=== PATIENT | female | born 1950 | race Caucasian/White ===

== ENCOUNTER → 2017-11-12 | Outpatient (CLI) | payer OTHER, MEDICAID ==
[~2017-11-12] MED LIST: ASA325 PO; BACL10TA PO; BEDSIDE COMMODE1 MI1; BENI40TA30 PO; CELE200 PO; CLEO300C2 PO; ESTE1TAB5 PO; LEVO.1 PO; METH10TA PO; METHTAB3 PO; METO25TA3 PO; NITR0.4S SL; PERC10TA27 PO; ROSU20 PO; TOPR100T15 PO; TOPR50TA PO; VALS1TAB64 PO; VALS320T6 PO; VITA20003 PO
== END ==
LOC: CPRE 10:05
PROVIDERS: ATTEND Orthopaedic Surgery Sports Medicine
DX: M17.12 Unilateral primary osteoarthritis, left knee (principal)
CPT/HCPCS: 87640; 87641

== ENCOUNTER 2017-11-18 09:09 | Inpatient (IN) | payer OTHER ==
[~2017-11-18] VITALS: Ht 167.6 cm; Wt 71.0 kg
[~2017-11-18 09:09] MED LIST changes: -ASA325 PO; -BEDSIDE COMMODE1 MI1; -BENI40TA30 PO; -CELE200 PO; -CLEO300C2 PO; -METH10TA PO; -METHTAB3 PO; -METO25TA3 PO; -PERC10TA27 PO; -TOPR100T15 PO; -VALS1TAB64 PO; -VITA20003 PO
[2017-11-18] MEDS ORDERED: ceFAZolin INJ 1,000 MG VIAL ONE (11:59)
[2017-11-18] MEDS ORDERED: ROCURONIUM INJ 50 MG/5 ML SYRINGE IV PUSH ONE (12:00)
[2017-11-18] MEDS ORDERED: ePHEDrine/NS 25 MG/5 ML SYRINGE IV ONE (12:00)
[2017-11-18] MEDS ORDERED: PROPOFOL 200 MG/20 ML AMP IV ONE (12:00)
[2017-11-18] MEDS ORDERED: CHLORHEXIDINE GLUCONATE 2 % 1 PACK (2 CLOTHS) TOPICAL PRN (12:00)
[2017-11-18] MEDS ORDERED: LIDOCAINE HCL 1% PF 5 ML SYRINGE OTHER ONE (12:00)
[2017-11-18] MEDS ORDERED: SODIUM CHLORID 0.9% 500 ML IV PRN (12:00)
[2017-11-18] MEDS ORDERED: ONDANSETRON HCL 4 MG/2 ML VIAL IV ONE (12:00)
[2017-11-18] MEDS ORDERED: LACTATED RINGER'S 1000 ML IV PRN (12:00)
[2017-11-18] MEDS ORDERED: POVIDONE IODINE 5% (ANTISEPSIS KIT) 4 APPLICATIONS EACH NARE PRN (12:00)
[2017-11-18] MEDS ORDERED: DEXAMETHASONE SOD PHOS 4 MG/ML VIAL IV ONE (12:00)
[2017-11-18] MEDS ORDERED: METOPROLOL TARTRATE 25 MG TAB PO PRN (12:00)
[2017-11-18] MEDS ORDERED: PHENYLEPH/NS 1000 MCG/10 ML SYR IV ONE (12:00)
[2017-11-18] MEDS ORDERED: LACTATED RINGER'S 1000 ML INJ 1,000 ML IV ONE (12:00)
[2017-11-18] MEDS ORDERED: PERC10TA27 PO (12:16)
[2017-11-18] MEDS ORDERED: APREPITANT 40 MG CAP ONE (12:29)
[2017-11-18] MEDS ORDERED: TRANEXAMIC ACID IV SCH (12:45)
[2017-11-18] MEDS ORDERED: ceFAZolin 2 GM PREMIX 50 ML IV SCH (12:45)
[2017-11-18] MEDS ORDERED: VANCOMYCIN 1 GM/200 ML PREMIX IV SCH (12:45)
[2017-11-18] MEDS ORDERED: SODIUM CHLORIDE 0.9% IV SCH (12:45)
[2017-11-18] MEDS ORDERED: CHLORHEXIDINE GLUCONATE 4% SOLN 120 ML BTL TOPICAL SCH (12:45)
[2017-11-18] MEDS ORDERED: BUPIVACAINE LIPOSOME PF 1.3% 20 ML VIAL ONE ×2 (12:49→13:15)
[2017-11-18] MEDS ORDERED: MIDAZOLAM HCL 5 MG/5 ML VIAL ONE (12:49)
[2017-11-18] MEDS ORDERED: TRANEXAMIC ACID 1 GM PRIOR TO PROCEDURE IV SCH ×2 (13:15)
[2017-11-18] MEDS ORDERED: MIDAZOLAM HCL 5 MG/ML VIAL (1 ML) IV PUSH ONE (13:15)
[2017-11-18] MEDS ORDERED: APREPITANT 40 MG CAP PO ONE (13:15)
[2017-11-18] MEDS ORDERED: SODIUM CHLORIDE 0.9% INJ 50 ML ONE (14:05)
[2017-11-18] MEDS ORDERED: BUPIVACAINE/EPINEPHRINE 0.5% PF 10 ML VIAL ONE (14:05)
[2017-11-18] MEDS ORDERED: TRANEXAMIC ACID INJ 1,000 MG in SODIUM CHLORIDE 0.9% INJ 100 ML IV SCH ×2 (16:00→16:15)
--- NOTE | 2017-11-18 16:10 | PD.OP ---
cc: José Antonio Hansen MD Operative Report Date of Surgery: Nov 18, 2017 Preoperative Diagnosis: (1) Osteoarthritis of left knee Postoperative Diagnosis: (1) Osteoarthritis of left knee Procedure: Left total knee arthroplasty Anesthesia: General with preoperative regional block Surgeon: José Antonio Hansen Scrap Metal Collector(s): Nita Frias PA-C ([place]) The surgical procedure was assisted by my physician's elementary assistant teacher. Her presence was necessary throughout the case for manipulation and positioning of the surgical extremity. My PA was assisting me throughout the duration of this procedure. The skill set of the physician elementary assistant teacher was medically necessary to complete this procedure. During the surgical case the ecologist technician was working at the back table and the physician elementary assistant teacher was directly assisting me. Operation and Findings: This 66-year-old female has a long history of progressive left knee pain and deformity. The patient initially relates it to an injury many years ago. She has had a previous right total knee arthroplasty.The patient has had progressive pain and a valgus deformity which limits her daily activity. She has been unresponsive to nonoperative measures. X-rays reveals advanced degenerative joint disease worse in the lateral compartment with bony erosion of the tibial plateau and a significant valgus alignment. Given the alternatives to treatment she presents for total knee arthroplasty. Implants used: Depuy size 4N cemented posterior stabilized femoral component, size 4 cemented revision tibial stem rotating platform, 35 cemented polyethylene patellar dome, with a 10 mm tibial insert rotating platform Procedure and findings: The patient was taken to the operative suite and after undergoing an adequate level of general anesthesia preceded by a regional block was kept supine on the operating table. Preoperative antibiotics consisted of Ancef 2 g IV and vancomycin 1 g IV. The left lower extremity was then prepped and draped in usual sterile fashion with alcohol and Hibiclens. A standard anterior approach the knee was made with incision centered over the medial one third of the patella. This was carried down through skin and subcutaneous tense tissue with a knife. The quadricep tendon was identified proximally and the patellar tendon distally. A medial parapatellar arthrotomy was made. A small joint effusion was evacuated. Upon entering the knee joint is noted to be marked degenerative changes which were tricompartmental in nature. It was significantly worse in the lateral compartment with bony erosion of the tibial plateau and lateral femoral condyle. The remnant of the ACL was excised. The menisci were excised. Osteophytes were removed. Attention was first focused on the distal femur where an intramedullary guide was used to make a 5 valgus cut. A sizing jig was then applied and a 4 selected. With the cutting block in place the anterior, posterior and chamfer cuts were made.The central box cut was then made. Attention was then focused on the proximal tibia. An extramedullary guide was used. A 0 mm of bone wareferencing off the lateral aspect. The varus/valgus alignment was also checked with an extramedullary guide. The PCL was released. The tibia was then sized to a 4. A freehand technique was utilized on the patella. This was sized to a 35. Drill holes were made and trial components placed. The 10 mm tibial bearing gave the best range of motion and stability. There was good patellar tracking. These components were therefore selected. The femoral drill holes were made. The tibial cement punches were made. A drill was used to open the proximal tibia to accept a tibial stemmed component. The wound was thoroughly irrigated with pulse lavage. Bone cement was prepared on the back table. After thorough drying it was applied to the proximal tibia. The tibial component was then impacted in the place. All excess bone cement was removed. Bone cement was then applied to the distal femur. The femoral component was then impacted in the place. A trial tibial bearing was then placed. The knee was then placed in full extension for further compression. After thorough drying bone cement was applied to the undersurface of the patella. The patellar button was seated and held with a compression clamp. All excess bone cement was removed. Once the cement had matured good range of motion, patellar tracking and stability was again noted. The 10 mm tibial bearing was then seated. The wound was again thoroughly irrigated with pulse lavage. AutoVac drains were left in place. The incision was closed in layers utilizing #1 Vicryl suture on the extensor mechanism, 0 Vicryl suture on the deep tissue, 2-0 Vicryl suture on the subcutaneous tissue and tere on the skin. Sterile dressings were applied the patient was awakened transferred to the hospital bed and taken to the recovery room in stable condition. Estimated blood loss: 75 cc Complications: None José Antonio Hansen MD Nov 18, 2017 16:10
[2017-11-18] MEDS ORDERED: DO NOT ADM ANY ANTICOAGULANT DRUGS PRN (16:12)
[2017-11-18] MEDS ORDERED: PROMETHAZINE HCL 25 MG TAB PO PRN (16:15)
[2017-11-18] MEDS ORDERED: ALUMINUM/MAGNESIUM/SIMETH 30 ML CUP PO PRN (16:15)
[2017-11-18] MEDS ORDERED: BISACODYL 10 MG SUPP RECTAL PRN (16:15)
[2017-11-18] MEDS ORDERED: ACETAMINOPHEN 325 MG TAB PO PRN (16:15)
[2017-11-18] MEDS ORDERED: TEMAZEPAM 15 MG CAP PO PRN (16:15)
[2017-11-18] MEDS ORDERED: SODIUM CHLORIDE 0.9% FLUSH 10 ML FLUSH IV FLUSH PRN (16:15)
[2017-11-18] MEDS ORDERED: LACTULOSE SYRUP 20 GM/30 ML CUP PO PRN (16:15)
[2017-11-18] MEDS ORDERED: Post-op Orders (for Pharmacy) XX ONE (16:15)
[2017-11-18] MEDS ORDERED: MORPHINE SULFATE 8 MG/ML INJ IV PUSH PRN (16:15)
[2017-11-18] MEDS ORDERED: oxyCODONE/ACETAMINOPHEN 5 MG/325 MG TAB PO PRN (16:15)
[2017-11-18] MEDS: LACTATED RINGER'S 1000 ML INJ 1,000 ML IV SCH (16:30)
[2017-11-18] MEDS ORDERED: *HYDROmorphone PF 0.5 MG/0.5 ML PERIprocedure ONLY ONE ×3 (16:40→17:18)
--- NOTE | 2017-11-18 17:10 | RADRPT ---
EXAM DATE: 11/18/2017 4:52 PM EDT AGE/SEX: 66 years / Female INDICATIONS: Post operative left knee. CLINICAL DATA: This is the patient's initial encounter. Patient reports that signs and symptoms have been present for 1 day and indicates a pain score of Nonresponsive. MEDICAL/SURGICAL HISTORY: Non-responsive. Non-responsive. COMPARISON: No prior [place] exams available for comparison. FINDINGS: Left total knee arthroplasty. All 3 components are appropriately positioned. No fracture. YANELY type luis in is seen in the suprapatellar region. CONCLUSION: Appropriate postoperative appearance of the left knee status post total arthroplasty. Electronically signed by: Elpidio Moore MD 11/18/2017 5:09 PM EDT
--- NOTE | 2017-11-18 18:35 | PD.CONS ---
HPI Service [facility] Consult Requested By Orthopedic surgeon Reason for Consult Medical management Primary Care Physician No Primary Care Physician Diagnoses: History of Present Illness 66-year-old female with history of hypertension, hyperlipidemia, and severe left knee OA who despite medical management including PT, corticosteroid injections and NSAIDs, continue to have severe left knee pain affecting her daily living of activity including ambulation, underwent today left total knee arthroplasty.[facility] was consulted for medical management. Patient has no other issues and vital stable Review of Systems Except as stated in HPI: all other systems reviewed are Neg Past Family Social History Allergies: Coded Allergies: No Known Allergies (Unverified Allergy, Unknown, 11/18/17) morphine (Verified Adverse Reaction, Unknown, nausea and vomiting, 11/18/17) Past Medical History Left knee OA Hypertension Hyperlipidemia Hypothyroidism Past Surgical History s/p Left total knee arthroplasty November 18, 2017 Reported Medications See EMR Family History Noncontributory Social History Patient denies tobacco, illicit drug intake Physical Exam Vital Signs Vital Signs Date Time Temp Pulse Resp B/P (MAP) Pulse Ox O2 Delivery O2 Flow Rate FiO2 11/18/17 17:15 97.9 75 18 125/59 (81) 100 Nasal Cannula 2 11/18/17 17:00 78 18 119/63 (81) 100 Nasal Cannula 2 11/18/17 16:45 77 16 113/54 (73) 100 Nasal Cannula 3 11/18/17 16:30 79 16 103/55 (71) 100 Nasal Cannula 3 11/18/17 16:15 67 15 81/41 (54) 96 Nasal Cannula 3 11/18/17 16:09 97.9 65 16 85/46 (59) 96 Nasal Cannula 3 11/18/17 12:30 100 Nasal Cannula 2 11/18/17 11:45 98.0 77 20 128/66 (86) 99 Physical Exam GENERAL: This is a well-nourished, well-developed patient, in no apparent distress. SKIN: No rashes, ecchymoses or lesions. Cool and dry. HEAD: Atraumatic. Normocephalic. No temporal or scalp tenderness. EYES: Pupils equal round and reactive. Extraocular motions intact. No scleral icterus. No injection or drainage. ENT: Nose without bleeding, purulent drainage or septal hematoma. Throat without erythema, tonsillar hypertrophy or exudate. Uvula midline. Airway patent. NECK: Trachea midline. No JVD or lymphadenopathy. Supple, nontender, no meningeal signs. CARDIOVASCULAR: Regular rate and rhythm without murmurs, gallops, or rubs. RESPIRATORY: Clear to auscultation. Breath sounds equal bilaterally. No wheezes , rales, or rhonchi. GASTROINTESTINAL: Abdomen soft, non-tender, nondistended. No hepato-splenomegaly , or palpable masses. No guarding. MUSCULOSKELETAL: Extremities without clubbing, cyanosis, or edema. No joint tenderness, effusion, or edema noted. No calf tenderness. Negative Homans sign bilaterally.s/p left knee repair; drain in place NEUROLOGICAL: Awake and alert. Cranial nerves II through XII intact. Motor and sensory grossly within normal limits. Five out of 5 muscle strength in all muscle groups. Normal speech. Imaging Last Impressions Knee X-Ray 11/18/17 0000 Signed Impressions: CONCLUSION: Appropriate postoperative appearance of the left knee status post total arthrop lasty. Assessment and Plan Assessment and Plan 66-year-old female with Status post Left total knee arthroplasty November 18, 2017 Management per orthopedic surgery Continue with pain management accordingly Aspirin for DVT prophylaxis PT consult to treat and eval History of hypertension, hypothyroidism, hyperlipidemia Resume outpatient medications DVT prophylaxis: Aspirin Code Status Full code Discussed Condition With Patient Jeff Mcfarlane MD Nov 18, 2017 18:35
[2017-11-18] MEDS: ceFAZolin 2 GM PREMIX 50 ML IV SCH (19:58)
[2017-11-18] MEDS: METOPROLOL SUCCINATE 50 MG EXTENDED RELEASE TAB PO SCH (19:59)
[2017-11-18] MEDS: oxyCODONE/ACETAMINOPHEN 5 MG/325 MG TAB PO PRN (19:59)
[2017-11-18] MEDS: SODIUM CHLORIDE 0.9% FLUSH 10 ML FLUSH IV FLUSH SCH (19:59)
[2017-11-18] MEDS: DOCUSATE SODIUM 50 MG/SENNA 8.6 MG TAB PO SCH (19:59)
[2017-11-18 20:05] VITALS: BP 141/67; PULSE 75; RESP 18; TEMP 97.7; O2SAT 99
[2017-11-18] MEDS ORDERED: SENNOSIDES 8.6 MG TAB PO PRN (21:00)
[2017-11-18] MEDS ORDERED: MAGNESIUM HYDROXIDE SUSP 30 ML CUP PO PRN (21:00)
[2017-11-18] MEDS: HYDROmorphone HCL PF 2 MG/ML VIAL IV PRN (21:23)
[2017-11-19] VITALS: BP 109/56; PULSE 81; RESP 16; TEMP 98.2; O2SAT 100
[2017-11-19] MEDS: ceFAZolin 2 GM PREMIX 50 ML IV SCH ×2 (01:25→08:32)
[2017-11-19] MEDS: oxyCODONE/ACETAMINOPHEN 5 MG/325 MG TAB PO PRN ×5 (01:26→18:42)
[2017-11-19] MEDS: HYDROmorphone HCL PF 2 MG/ML VIAL IV PRN ×4 (02:29→20:09)
[2017-11-19 04:00] VITALS: BP 117/55; PULSE 62; RESP 16; TEMP 98.2; O2SAT 97
[2017-11-19 04:03] LABS: HEMATOCRIT 34.9 % (35.0-46.0); HEMOGLOBIN 11.4 GM/DL (11.6-15.3)
[2017-11-19] MEDS: LACTATED RINGER'S 1000 ML INJ 1,000 ML IV SCH ×2 (04:40→17:10)
[2017-11-19] MEDS: LEVOTHYROXINE SODIUM 100 MCG TAB PO SCH (05:03)
[2017-11-19 08:00] VITALS: BP 125/59; PULSE 64; RESP 16; TEMP 98.3; O2SAT 99
--- NOTE | 2017-11-19 08:06 | PD.ORT.PN ---
Subjective Post Op Day #: 1 Subjective Remarks POD #1 Left TKA Pt is awake and alert. She states her pain is well controlled this morning but she did have a difficult night. Admits interest in using CPM. States she has more back pain from previous surgeries and is requesting a muscle relaxer. Lives alone and unsure of C vs rehab upon discharge. Objective Vitals Vital Signs Date Time Temp Pulse Resp B/P (MAP) Pulse Ox O2 Delivery O2 Flow Rate FiO2 11/19/17 04:00 98.2 62 16 117/55 (75) 97 11/19/17 00:00 98.2 81 16 109/56 (73) 100 11/18/17 20:05 97.7 75 18 141/67 (91) 99 11/18/17 17:15 97.9 75 18 125/59 (81) 100 Nasal Cannula 2 11/18/17 17:00 78 18 119/63 (81) 100 Nasal Cannula 2 11/18/17 16:45 77 16 113/54 (73) 100 Nasal Cannula 3 11/18/17 16:30 79 16 103/55 (71) 100 Nasal Cannula 3 11/18/17 16:15 67 15 81/41 (54) 96 Nasal Cannula 3 11/18/17 16:09 97.9 65 16 85/46 (59) 96 Nasal Cannula 3 11/18/17 12:30 100 Nasal Cannula 2 11/18/17 11:45 98.0 77 20 128/66 (86) 99 I/O 11/18/17 11/18/17 11/18/17 11/19/17 11/19/17 11/19/17 07:00 15:00 23:00 07:00 15:00 23:00 Intake Total 1500 ml Output Total 75 ml 60 ml Balance 1425 ml -60 ml Other 1500 ml Output Drainage Total 60 ml Estimated Blood Loss 75 ml Result Diagram: 11/19/17 0320 Imaging Last 48 hours Impressions Knee X-Ray 11/18/17 0000 Signed Impressions: CONCLUSION: Appropriate postoperative appearance of the left knee status post total arthrop lasty. Procedures 11/18/2017 Left Total Knee Arthroplasty Objective Remarks LLE: Dressing dry and intact. Drain in place. Tender to palpation with mild swelling around incision site. Appropriate range of motion expected post operatively. Freely able to move distal digits. No calf pain. Negative Chiqui's sign. Good cap refill. 2+ pedal pulses. Neurovascular intact. Assessment & Plan Ortho Post Op Day #: 1 Problem List: (1) Osteoarthritis of left knee ICD Codes: M17.12 - Unilateral primary osteoarthritis, left knee Assessment and Plan POD #1 Left Total Knee Arthroplasty Ortho Status stable, progress rehab, W/B as tolerated. CPM ordered per pt request. She states she has one at home upon d/c. Lovenox while in hospital for DVT prophylaxis. ASA upon d/c. No change dressing. Ok to d/c drain when <30cc a shift. Ok to remove cinda wrap/soft roll at that time. CM to arrange HHC vs rehab. Muscle relaxer per medical if appropriate. Appreciate involvement in pts care. Discharge planning. Nita Frias Nov 19, 2017 8:05 am
[2017-11-19] MEDS: ASPIRIN 325 MG TAB PO SCH (08:32)
[2017-11-19] MEDS: DOCUSATE SODIUM 50 MG/SENNA 8.6 MG TAB PO SCH ×2 (08:32→20:07)
[2017-11-19] MEDS: HYDROCHLOROTHIAZIDE 25 MG TAB PO SCH (08:33)
[2017-11-19] MEDS: SODIUM CHLORIDE 0.9% FLUSH 10 ML FLUSH IV FLUSH SCH ×2 (08:33→20:08)
[2017-11-19] MEDS: VALSARTAN 160 MG TAB PO SCH (08:33)
[2017-11-19] MEDS: ATORVASTATIN 40 MG TAB PO SCH (08:33)
[2017-11-19] MEDS: METOPROLOL SUCCINATE 50 MG EXTENDED RELEASE TAB PO SCH ×2 (08:33→20:07)
[2017-11-19 12:00] VITALS: BP 113/56; PULSE 67; RESP 16; TEMP 98.7; O2SAT 98
[2017-11-19] MEDS: ENOXAPARIN SODIUM 40 MG/0.4 ML SYRINGE SQ SCH (14:27)
--- NOTE | 2017-11-19 14:43 | HHI.PR ---
Subjective Remarks Follow-up for left TKA, HTN, HLD. The patient reports feeling better this afternoon. She states she had some right-sided back spasms earlier today, but resolved on its own. She believes the CPM is helping her left knee stiffness. Her last BM was yesterday 11/18 prior to surgery. She is tolerating oral intake. Vital signs reviewed and stable. She has no other medical complaints at this time. Objective Vitals Vital Signs Date Time Temp Pulse Resp B/P (MAP) Pulse Ox O2 Delivery O2 Flow Rate FiO2 11/19/17 12:00 98.7 67 16 113/56 (75) 98 11/19/17 10:59 18 11/19/17 09:02 18 11/19/17 08:00 98.3 64 16 125/59 (81) 99 11/19/17 04:00 98.2 62 16 117/55 (75) 97 11/19/17 00:00 98.2 81 16 109/56 (73) 100 11/18/17 20:05 97.7 75 18 141/67 (91) 99 11/18/17 17:15 97.9 75 18 125/59 (81) 100 Nasal Cannula 2 11/18/17 17:00 78 18 119/63 (81) 100 Nasal Cannula 2 11/18/17 16:45 77 16 113/54 (73) 100 Nasal Cannula 3 11/18/17 16:30 79 16 103/55 (71) 100 Nasal Cannula 3 11/18/17 16:15 67 15 81/41 (54) 96 Nasal Cannula 3 11/18/17 16:09 97.9 65 16 85/46 (59) 96 Nasal Cannula 3 I/O 11/18/17 11/18/17 11/18/17 11/19/17 11/19/17 11/19/17 07:00 15:00 23:00 07:00 15:00 23:00 Intake Total 1500 ml Output Total 75 ml 60 ml Balance 1425 ml -60 ml Other 1500 ml Output Drainage Total 60 ml Estimated Blood Loss 75 ml Result Diagram: 11/19/17 0320 Imaging Last Impressions Knee X-Ray 11/18/17 0000 Signed Impressions: CONCLUSION: Appropriate postoperative appearance of the left knee status post total arthrop lasty. Objective Remarks GENERAL: Well-nourished, well-developed pleasant female patient in NAD. SKIN: Warm and dry. No rash. HEENT: Normocephalic. Atraumatic. Pupils equal and round. Mucous membranes pink and moist. CARDIOVASCULAR: Regular rate and rhythm. No murmur appreciated. RESPIRATORY: No accessory muscle use. Clear to auscultation. Breath sounds equal bilaterally. GASTROINTESTINAL: Abdomen soft, non-tender, nondistended. Normoactive bowel sounds x4. MUSCULOSKELETAL: No obvious deformities. LLE in surgical dressing and Michael wrap CDI, currently in CPM. Distal left toes sensation intact with brisk capillary refill. NEUROLOGICAL: Awake and alert. No obvious cranial nerve deficits. Motor grossly within normal limits. Normal speech. PSYCHIATRIC: Appropriate mood and affect; insight and judgment normal. Procedures 11/18/17 -left total knee arthroplasty by Dr. Hansen Medications and IVs Current Medications Medications (Trade) Dose Ordered Sig/Vincenzo Route Start Time Stop Time Status Last Admin Vancomycin/Sodium Chloride 200 ml @ 200 mls/hr REDUCING SYSTEM OPERATOR IV 11/18/17 12:45 11/21/17 12:44 11/18/17 13:12 (Hibiclens 4% Top Soln) 1 applic ONCE TOPICAL 11/18/17 12:45 11/21/17 12:44 11/18/17 12:30 Cefazolin Sodium/ Dextrose 50 ml @ 100 mls/hr REDUCING SYSTEM OPERATOR IV 11/18/17 12:45 11/21/17 12:44 11/18/17 13:40 Lactated Ringer's 1,000 ml @ 80 mls/hr [id number] IV 11/18/17 16:10 11/18/17 16:30 (NS Flush) 2 ml UNSCH PRN IV FLUSH 11/18/17 16:15 (NS Flush) 2 ml BID IV FLUSH 11/18/17 21:00 11/19/17 08:33 (Lovenox Inj) 40 mg Q24H SQ 11/19/17 15:00 11/19/17 14:27 (Percocet 5-325 Mg) 1 tab Q4H PRN PO 11/18/17 16:15 (Percocet 5-325 Mg) 2 tab Q4H PRN PO 11/18/17 16:15 11/19/17 14:27 (Tylenol) 650 mg Q6H PRN PO 11/18/17 16:15 (Mag-Al Plus Susp Liq) 30 ml Q6H PRN PO 11/18/17 16:15 (Restoril) 15 mg HS PRN PO 11/18/17 16:15 (Tatinaa-Colace) 1 tab BID PO 11/18/17 21:00 11/19/17 08:32 (Milk Of Magnesia Liq) 30 ml Q12HR PRN PO 11/18/17 21:00 (Senokot) 17.2 mg Q12HR PRN PO 11/18/17 21:00 (Dulcolax Supp) 10 mg DAILY PRN RECTAL 11/18/17 16:15 (Lactulose Liq) 30 ml DAILY PRN PO 11/18/17 16:15 (Phenergan) 25 mg Q6H PRN PO 11/18/17 16:15 (Aspirin) 325 mg DAILY PO 11/19/17 09:00 11/19/17 08:32 ([facility] Nursing Information) ALL NURSING DEPARTME... UNSCH PRN .XX 11/18/17 16:12 11/19/17 16:11 (Dilaudid Pf Inj) 1 mg Q3H PRN IV 11/18/17 17:15 11/19/17 12:28 (Synthroid) 100 mcg DAILY@0600 PO 11/19/17 06:00 11/19/17 05:03 (Toprol Xl) 50 mg BID PO 11/18/17 21:00 11/19/17 08:33 (Lipitor) 40 mg DAILY PO 11/19/17 09:00 11/19/17 08:33 (Hydrodiuril) 25 mg DAILY PO 11/19/17 09:00 11/19/17 08:33 (Diovan) 320 mg DAILY PO 11/19/17 09:00 11/19/17 08:33 A/P Assessment and Plan 66-year-old female with history of hypertension, hyperlipidemia, hypothyroidism , osteoarthritis, admitted to the hospital for left total knee arthroplasty 11/[address] Hansen. Hospitalist consulted for medical management. Osteoarthritis status post left TKA: Surgery done 11/18/[address] Hansen -Continue management per orthopedic surgery -DVT prophylaxis with Lovenox while in the hospital, plan for aspirin upon discharge -PT consulted, patient undecided on home health care versus rehab -Continue pain control with Percocet prn and IV Dilaudid prn Hypertension/hyperlipidemia: Chronic, BP well-controlled -Continue patient's valsartan, metoprolol, HCTZ, statin -Monitor BP, adjust antihypertensives as needed Hypothyroidism: Chronic -Continue patient's Synthroid DVT prophylaxis: Portia Harrington PA-C Nov 19, 2017 2:43 pm
[2017-11-19 16:00] VITALS: BP 128/58; PULSE 76; RESP 16; TEMP 98.3; O2SAT 99
[2017-11-19 20:00] VITALS: BP 138/60; PULSE 66; RESP 16; TEMP 98.4; O2SAT 99
[2017-11-19] MEDS: BACLOFEN 10 MG TAB PO SCH (20:08)
[2017-11-19] MEDS ORDERED: KETOROLAC TROMETHAMINE 30 MG/ML (IVP) VIAL IV PUSH ONE (21:45)
[2017-11-20 00:01] VITALS: BP 104/59; PULSE 60; RESP 16; TEMP 98.1; O2SAT 97
[2017-11-20] MEDS: oxyCODONE/ACETAMINOPHEN 5 MG/325 MG TAB PO PRN ×5 (04:26→21:52)
[2017-11-20] MEDS: LACTATED RINGER'S 1000 ML INJ 1,000 ML IV SCH ×2 (04:47→18:10)
[2017-11-20] MEDS: LEVOTHYROXINE SODIUM 100 MCG TAB PO SCH (06:28)
[2017-11-20 08:00] VITALS: BP 129/72; PULSE 70; RESP 16; TEMP 98.5; O2SAT 98
[2017-11-20 08:38] LABS: CALCIUM 8.6 MG/DL (8.5-10.1); CREATININE 1.19 MG/DL (0.50-1.00)
[2017-11-20 08:47] LABS: AUTOMATED NEUTROPHIL # 8.4 TH/MM3 (1.8-7.7); BASOPHIL % 0.4 % (0.0-2.0); EOSINOPHIL # 0.1 TH/MM3 (0-0.4); EOSINOPHIL % 0.4 % (0.0-4.0); HEMATOCRIT 31.2 % (35.0-46.0); HEMOGLOBIN 10.5 GM/DL (11.6-15.3); LYMPH % 18.5 % (9.0-44.0); LYMPHOCYTE # 2.2 TH/MM3 (1.0-4.8); MEAN CELL VOLUME 92.7 FL (80.0-100.0); MEAN CORPUSCULAR HEMOGLOBIN 31.1 PG (27.0-34.0); MEAN CORPUSCULAR HGB CONC 33.6 % (32.0-36.0); MEAN PLATELET VOLUME 8.6 FL (7.0-11.0); MONO % 10.2 % (0.0-8.0); MONOCYTE # 1.2 TH/MM3 (0-0.9); NEUT % 70.5 % (16.0-70.0); PLATELET COUNT 292 TH/MM3 (150-450); RED BLOOD COUNT 3.36 MIL/MM3 (4.00-5.30); RED CELL DISTRIBUTION WIDTH 13.9 % (11.6-17.2); WHITE BLOOD COUNT 11.8 TH/MM3 (4.0-11.0)
[2017-11-20] MEDS: HYDROCHLOROTHIAZIDE 25 MG TAB PO SCH (09:18)
[2017-11-20] MEDS: ASPIRIN 325 MG TAB PO SCH (09:18)
[2017-11-20] MEDS: VALSARTAN 160 MG TAB PO SCH (09:18)
[2017-11-20] MEDS: ATORVASTATIN 40 MG TAB PO SCH (09:18)
[2017-11-20] MEDS: DOCUSATE SODIUM 50 MG/SENNA 8.6 MG TAB PO SCH ×2 (09:19→21:49)
[2017-11-20] MEDS: METOPROLOL SUCCINATE 50 MG EXTENDED RELEASE TAB PO SCH ×2 (09:19→21:49)
[2017-11-20] MEDS: SODIUM CHLORIDE 0.9% FLUSH 10 ML FLUSH IV FLUSH SCH ×2 (09:32→21:49)
--- NOTE | 2017-11-20 10:25 | HHI.PR ---
Subjective Remarks Pt tells me she feels ok, but has some back pain/spasm on the left. states she had a fusion a long time ago and since sx she has left sided back discomfort but feels it in the muscle, states it is just "uncomfortable". denies any CP/SOB /N/V Objective Vitals Vital Signs Date Time Temp Pulse Resp B/P (MAP) Pulse Ox O2 Delivery O2 Flow Rate FiO2 11/20/17 00:01 98.1 60 16 104/59 (74) 97 11/19/17 20:00 98.4 66 16 138/60 (86) 99 11/19/17 16:00 98.3 76 16 128/58 (81) 99 11/19/17 15:27 18 11/19/17 12:58 18 11/19/17 12:00 98.7 67 16 113/56 (75) 98 I/O 11/19/17 11/19/17 11/19/17 11/20/17 11/20/17 11/20/17 07:00 15:00 23:00 07:00 15:00 23:00 Intake Total 600 ml 500 ml Output Total 60 ml 50 ml Balance -60 ml 600 ml 450 ml Intake Oral 600 ml 500 ml Output Drainage Total 60 ml 50 ml # Voids 2 3 Result Diagram: 11/20/17 0642 11/20/17 0642 Imaging Last Impressions Knee X-Ray 11/18/17 0000 Signed Impressions: CONCLUSION: Appropriate postoperative appearance of the left knee status post total arthrop lasty. Objective Remarks GENERAL: sitting up on recliner, appears comfortable CARDIOVASCULAR: Regular rate and rhythm. No murmur appreciated. RESPIRATORY: Clear to auscultation. Breath sounds equal bilaterally. GASTROINTESTINAL: Abdomen soft, non-tender, nondistended. MUSCULOSKELETAL: No obvious deformities. LLE in surgical dressing and Michael wrap , able to wiggle her toes, sensation intact. I did palpate her back and she does have some tenderness in the lower paraspinal muscle and I'm able to reproduce her pain. NEUROLOGICAL: Awake and alert. No obvious cranial nerve deficits. Motor grossly within normal limits. Normal speech. Procedures 11/18/17 -left total knee arthroplasty by Dr. Hansen A/P Assessment and Plan 66-year-old female with history of hypertension, hyperlipidemia, hypothyroidism , osteoarthritis, admitted to the hospital for left total knee arthroplasty 11/[address] Hansen. Hospitalist consulted for medical management. Osteoarthritis status post left TKA: Surgery done 11/18/[address] Hansen -Continue management per orthopedic surgery -DVT prophylaxis with Lovenox while in the hospital, plan for aspirin upon discharge -PT following -Continue pain control per ortho Hypertension/hyperlipidemia: Chronic, BP well-controlled -Continue patient's valsartan, metoprolol, HCTZ, statin -Monitor BP, adjust antihypertensives as needed Hypothyroidism: Chronic -Continue patient's Synthroid back muscle discomfort/spasm: will give one time dose of flexeril now. Apply heating pad to back as needed DVT prophylaxis: Lovenox Discharge Planning per primary team Janny Molina MD Nov 20, 2017 10:25
[2017-11-20] MEDS ORDERED: CYCLOBENZAPRINE HCL 10 MG TAB PO ONE (10:30)
[2017-11-20 12:00] VITALS: BP 148/70; PULSE 64; RESP 18; TEMP 98.2; O2SAT 100
--- NOTE | 2017-11-20 14:09 | PD.ORT.PN ---
Subjective Subjective Remarks POD #2 Left TKA Pt is awake and alert. She states her pain is well controlled and she is working with therapy. She expresses interest in being discharged to rehab as she lives alone. No other complaints. Objective Vitals Vital Signs Date Time Temp Pulse Resp B/P (MAP) Pulse Ox O2 Delivery O2 Flow Rate FiO2 11/20/17 12:00 98.2 64 18 148/70 (96) 100 11/20/17 10:17 16 11/20/17 00:01 98.1 60 16 104/59 (74) 97 11/19/17 20:00 98.4 66 16 138/60 (86) 99 11/19/17 16:00 98.3 76 16 128/58 (81) 99 I/O 11/19/17 11/19/17 11/19/17 11/20/17 11/20/17 11/20/17 07:00 15:00 23:00 07:00 15:00 23:00 Intake Total 600 ml 500 ml Output Total 60 ml 50 ml Balance -60 ml 600 ml 450 ml Intake Oral 600 ml 500 ml Output Drainage Total 60 ml 50 ml # Voids 2 3 Result Diagram: 11/20/17 0642 11/20/17 0642 Imaging Last 48 hours Impressions Knee X-Ray 11/18/17 0000 Signed Impressions: CONCLUSION: Appropriate postoperative appearance of the left knee status post total arthrop lasty. Procedures 11/18/2017 Left Total Knee Arthroplasty Objective Remarks LLE: Dressing dry and intact. Mild area of saturation on the lateral side. Tender to palpation with mild swelling around incision site. Appropriate range of motion expected post operatively. Freely able to move distal digits. No calf pain. Negative Chiqui's sign. Good cap refill. 2+ pedal pulses. Neurovascular intact. Assessment & Plan Problem List: (1) Osteoarthritis of left knee ICD Codes: M17.12 - Unilateral primary osteoarthritis, left knee Assessment and Plan POD #2 Left Total Knee Arthroplasty Ortho Status stable, progress rehab, W/B as tolerated. CPM ordered per pt request. She states she has one at home upon d/c. Lovenox while in hospital for DVT prophylaxis. ASA upon d/c. No change dressing. Discharge planning, anticipate d/c tomorrow to rehab. Nita Frias Nov 20, 2017 14:09
[2017-11-20] MEDS: ENOXAPARIN SODIUM 40 MG/0.4 ML SYRINGE SQ SCH (14:27)
[2017-11-20 16:00] VITALS: BP 128/61; PULSE 63; RESP 18; TEMP 98.5; O2SAT 100
[2017-11-20 20:00] VITALS: BP 143/66; PULSE 67; RESP 17; TEMP 98.1; O2SAT 97
[2017-11-20] MEDS ORDERED: PADIMATE (CHAPSTICK) 4.5 GM TUBE TOPICAL PRN (20:15)
[2017-11-20] MEDS: BACLOFEN 10 MG TAB PO SCH (21:49)
[2017-11-21 00:01] VITALS: BP 143/70; PULSE 69; RESP 18; TEMP 98.6; O2SAT 98
[2017-11-21] MEDS: oxyCODONE/ACETAMINOPHEN 5 MG/325 MG TAB PO PRN ×3 (02:30→10:35)
[2017-11-21] MEDS: LACTATED RINGER'S 1000 ML INJ 1,000 ML IV SCH (06:02)
[2017-11-21] MEDS: LEVOTHYROXINE SODIUM 100 MCG TAB PO SCH (06:05)
--- NOTE | 2017-11-21 07:19 | PD.ORT.PN ---
Subjective Post Op Day #: 3 Subjective Remarks POD #3 Left TKA Pt is awake and alert. She states her pain is well controlled. She feels ready for d/c today to rehab. No other complaints. Objective Vitals Vital Signs Date Time Temp Pulse Resp B/P (MAP) Pulse Ox O2 Delivery O2 Flow Rate FiO2 11/21/17 00:01 98.6 69 18 143/70 (94) 98 11/20/17 20:00 98.1 67 17 143/66 (91) 97 11/20/17 16:00 98.5 63 18 128/61 (83) 100 11/20/17 15:26 18 11/20/17 12:00 98.2 64 18 148/70 (96) 100 11/20/17 08:00 98.5 70 16 129/72 (91) 98 I/O 18 11/20/17 11/20/17 11/21/1718 11/21/17 07:00 15:00 23:00 07:00 15:00 23:00 Intake Total 500 ml 600 ml Output Total 50 ml Balance 450 ml 600 ml Intake Oral 500 ml 600 ml Output Drainage Total 50 ml # Voids 3 3 3 # Bowel Movements 1 1 Result Diagram: 11/20/17 0642 11/20/17 0642 Imaging Last 48 hours Impressions Knee X-Ray 11/18/17 0000 Signed Impressions: CONCLUSION: Appropriate postoperative appearance of the left knee status post total arthrop lasty. Procedures 11/18/2017 Left Total Knee Arthroplasty Objective Remarks LLE: Dressing dry and intact. Mild area of saturation on the lateral side. Tender to palpation with mild swelling around incision site. Appropriate range of motion expected post operatively. Freely able to move distal digits. No calf pain. Negative Chiqui's sign. Good cap refill. 2+ pedal pulses. Neurovascular intact. Assessment & Plan Problem List: (1) Osteoarthritis of left knee ICD Codes: M17.12 - Unilateral primary osteoarthritis, left knee Assessment and Plan POD #3 Left Total Knee Arthroplasty Ortho Status stable, progress rehab, W/B as tolerated. CPM ordered per pt request. She states she has one at home upon d/c. Lovenox while in hospital for DVT prophylaxis. ASA upon d/c. No change dressing. Clear for d/c from an orthopedic standpoint. F/U in 3 weeks Clapper,Nita Juanis PA Nov 21, 2017 07:19
[2017-11-21] MEDS ORDERED: BEDSIDE COMMODE1 MI1 (07:23)
[2017-11-21] MEDS ORDERED: PERC10TA27 PO ×2 (07:27→07:34)
[2017-11-21] MEDS ORDERED: ASA325 PO (07:27)
--- NOTE | 2017-11-21 07:30 | HHI.DS ---
Discharge Summary Admission Date Nov 18, 2017 at 11:12 Discharge Date: Nov 21, 2017 Admitting Diagnosis OA Left knee Diagnosis: (1) Osteoarthritis of left knee Diagnosis: Principal ICD Codes: M17.12 - Unilateral primary osteoarthritis, left knee Procedures 11/18/2017 Left Total Knee Arthroplasty Brief History This is a 66 year old female patient who has a long standing nature of osteoarthritis with deformity present of her left knee. She has tried conservative treatment for several years which provided no relief. She presented for left total knee arthroplasty for this hospital stay. CBC/BMP: 11/20/17 0642 11/20/17 0642 Significant Findings Laboratory Tests Test 11/19/17 03:20 11/20/17 06:42 Hemoglobin 11.4 GM/DL (11.6-15.3) 10.5 GM/DL (11.6-15.3) Hematocrit 34.9 % (35.0-46.0) 31.2 % (35.0-46.0) White Blood Count 11.8 TH/MM3 (4.0-11.0) Red Blood Count 3.36 MIL/MM3 (4.00-5.30) Neutrophils (%) (Auto) 70.5 % (16.0-70.0) Monocytes (%) (Auto) 10.2 % (0.0-8.0) Neutrophils # (Auto) 8.4 TH/MM3 (1.8-7.7) Monocytes # (Auto) 1.2 TH/MM3 (0-0.9) Blood Urea Nitrogen 28 MG/DL (7-18) Creatinine 1.19 MG/DL (0.50-1.00) Estimat Glomerular Filtration Rate 45 ML/MIN (>89) Imaging Last Impressions Knee X-Ray 11/18/17 0000 Signed Impressions: CONCLUSION: Appropriate postoperative appearance of the left knee status post total arthrop lasty. PE at Discharge LLE: Dressing dry and intact. Mild area of saturation on the lateral side. Tender to palpation with mild swelling around incision site. Appropriate range of motion expected post operatively. Freely able to move distal digits. No calf pain. Negative Chiqui's sign. Good cap refill. 2+ pedal pulses. Neurovascular intact. Hospital Course On the day of admission the patient was taken to the operating room where the patient underwent left total knee arthroplasty. The patient tolerated the procedure well. For details of operative report please see dictated operative report. The patient was placed on Ancef and Vancomycin for infection prophylaxis and Aspirin for DVT prophylaxis. Physical therapy was consulted for discharge planning. The patient will be placed in a rehab facility and it has been arranged. At the time of discharge the patient was afebrile. Incision line noted to be healing well. The patient will be discharged home with Aspirin for DVT prophylaxis and prescribed Percocet for pain. The patient acknowledges full understanding of plan of treatment and agrees to it. Pt Condition on Discharge: Good Discharge Disposition: Rehab Inpatient Discharge Instructions Diet Instructions: As Tolerated, No Restrictions Activities You Can Perform: Weight Bearing as Dom Activities to Avoid: Lifting/Bending Nita Frias Nov 21, 2017 07:30
[2017-11-21 07:50] VITALS: BP 135/61; PULSE 70; RESP 20; TEMP 98.3; O2SAT 99
[2017-11-21] MEDS: SODIUM CHLORIDE 0.9% FLUSH 10 ML FLUSH IV FLUSH SCH (10:35)
[2017-11-21] MEDS: ASPIRIN 325 MG TAB PO SCH (10:35)
[2017-11-21] MEDS: VALSARTAN 160 MG TAB PO SCH (10:35)
[2017-11-21] MEDS: ATORVASTATIN 40 MG TAB PO SCH (10:36)
[2017-11-21] MEDS: METOPROLOL SUCCINATE 50 MG EXTENDED RELEASE TAB PO SCH (10:36)
[2017-11-21] MEDS: DOCUSATE SODIUM 50 MG/SENNA 8.6 MG TAB PO SCH (10:36)
[2017-11-21] MEDS: HYDROCHLOROTHIAZIDE 25 MG TAB PO SCH (10:36)
[2017-11-21 11:50] VITALS: BP 142/74; PULSE 62; RESP 20; TEMP 98.4; O2SAT 97
== END 2017-11-21 14:30 | DRG 470 ==
LOC: HSDI 11:12 → EDSTATUS 15:00 → N06A 17:37
PROVIDERS: ADMIT Orthopaedic Surgery Sports Medicine; ATTEND Orthopaedic Surgery Sports Medicine
PROC: 3E0T3BZ Introduction of Anesthetic Agent into Peripheral Nerves and Plexi, Percutaneous Approach (ICD-10-PCS; 2017-11-18)
PROC: 0SRD0J9 Replacement of Left Knee Joint with Synthetic Substitute, Cemented, Open Approach (ICD-10-PCS; principal; 2017-11-18 13:25)
DX: M17.12 Unilateral primary osteoarthritis, left knee (principal); I10 Essential (primary) hypertension; E78.5 Hyperlipidemia, unspecified; E03.9 Hypothyroidism, unspecified; M21.062 Valgus deformity, not elsewhere classified, left knee; M25.762 Osteophyte, left knee; Z88.5 Allergy status to narcotic agent; M62.830 Muscle spasm of back; Z87.891 Personal history of nicotine dependence; Z96.651 Presence of right artificial knee joint
CPT/HCPCS: 73560; 80048; 85014; 85018; 85025; 86850; 86900; 86901; 94150; C1776; C9290; J0690; J1100; J1170; J1650; J1885; J2250; J2370; J2405; J3010; J3370; J7120; J8501; L1830